=== PATIENT | male | born 2000 | race Caucasian/White ===

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

== ENCOUNTER 2022-09-30 13:58 | Emergency (ER) | payer OTHER ==
[2022-09-30 14:28] VITALS: BP 126/65; PULSE 83; RESP 20; TEMP 99; BMI 24.3
== END 2022-09-30 15:18 | disposition home or self-care (01) ==
LOC: FER 13:58
DX: S43.101A Unspecified dislocation of right acromioclavicular joint, initial encounter (principal); X58.XXXA Exposure to other specified factors, initial encounter
CPT/HCPCS: 73030-TC-RT-FY; 99283-25

== ENCOUNTER 2023-10-12 15:36 | Emergency (ER) | payer OTHER ==
[2023-10-12 16:43] VITALS: BP 139/77; PULSE 91; RESP 16; TEMP 98; BMI 21.2
== END 2023-10-12 17:07 | disposition home or self-care (01) ==
LOC: FER 15:36
DX: S43.005A Unspecified dislocation of left shoulder joint, initial encounter (principal); X50.1XXA Overexertion from prolonged static or awkward postures, initial encounter
CPT/HCPCS: 73030-TC-LT-FY; 99283-25